=== PATIENT | female | born 1995 | race Caucasian/White ===

== ENCOUNTER 2024-06-01 08:25 | Emergency (ER) | payer SELFPAY ==
[2024-06-01 08:33] VITALS: BP 140/56; PULSE 60; RESP 16; TEMP 36.5; O2SAT 100
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
--- NOTE | 2024-06-01 08:48 | XR_ITS ---
WS: [email or web address] Cervical spine, 3 views, 06/01/2024 Clinical Data: trauma Comparison: None. Findings: No compression fractures are seen. The disc heights are normal. There is no prevertebral so ft tissue swelling. The odontoid is unremarkable. The soft tissues of the neck and the lung apices ar e normal. XR/XR cervical spine 3V* [id number] Impression: Negative cervical spine.
--- NOTE | 2024-06-01 08:48 | XR_ITS ---
WS: [email or web address] Right shoulder, 3 views, 06/01/2024 Clinical Data: trauma Comparison: None. Findings: No fractures or dislocations are seen. The AC joint is normal. The adjacent right clavicle, right sca pula and ribs are normal. The soft tissues are unremarkable. XR/XR shoulder RT min 2V* [id number] Impression: Negative right shoulder.
[2024-06-01 08:51] LABS: Basophils % 0.7 %; Eosinophils % 0.5 %; Lymphocytes # 1.9 10^3/uL (0.8-4.8); Lymphocytes % 32.8 %; Mean Corpuscular HGB Conc 32.6 g/dL (30-55); Mean Corpuscular Hemoglobin 31.5 pg (27-33); Mean Corpuscular Volume 96.6 fl (85-98); Mean Platelet Volume 10.7 fL (7.4-10.4); Monocytes # 0.3 10^3/uL (0.2-0.9); Monocytes % 5.3 %; Neutrophils # 3.41 10^3/uL (1.8-7.7); Neutrophils % 60.5 %; Nucleated Red Blood Cells % 0 %; Platelet Count 262 10^3/cmm (157-399); Red Blood Count 4.35 10^6/uL (3.85-5.65); Red Cell Distribution Width 11.9 % (12.1-15.1); White Blood Count 5.64 10^3/uL (3.29-11.43)
[2024-06-01 09:04] LABS: Alanine Aminotransferase 12 U/L (0-33); Albumin Level 4.4 g/dL (3.5-5.2); Alkaline Phosphatase 60 U/L (35-105); Anion Gap 13.6 (5-19); Aspartate Amino Transferase 16 U/L (0-32); Blood Urea Nitrogen 11 mg/dL (6-20); Carbon Dioxide 24 mmol/L (22-29); Chloride 105 mmol/L (98-107); Globulin 2.9 g/dL (1.3-4.6); Glomerular Filtration Rate 100.4 mL/min (90-130); Glucose 128 mg/dL (65-115); Osmolality Calculated 289 mOsm/kg (285-295); Potassium 3.6 mmol/L (3.5-5.1); Sodium 139 mmol/L (136-145); Total Bilirubin 0.7 mg/dL (0.15-1.2); Total Protein 7.3 g/dL (6.6-8.7)
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
[2024-06-01 09:30] VITALS: BP 102/67; PULSE 54; O2SAT 100
[2024-06-01 09:53] LABS: HCG, Serum Qual Negative (Negative)
[2024-06-01 10:15] LABS: Bilirubin Urine Negative (Negative); Blood Urine Negative (Negative); Glucose Urine UA Negative (Normal); Ketones Urine Trace (Negative); Leukocyte Esterase Urine Trace (Negative); Nitrate Urine Negative (Negative); Protein Urine 2+ (Negative); Specific Gravity, Urine 1.025 (1.005-1.030); Urine Appearance Cloudy (CLEAR); Urine Color Yellow (Yellow); pH Urine 5.5 (5-7)
[2024-06-01 10:19] LABS: Add Urine Microscopic? YES; Bacteria Urine None Seen /hpf; Hyaline Casts Urine 2.87 /lpf; WBC Urine 0-5 /hpf (0-5)
[2024-06-01 10:21] LABS: Add Urine Culture? No
[2024-06-01 10:33] VITALS: BP 110/71; PULSE 53; O2SAT 100
== END 2024-06-01 10:51 | disposition home or self-care (01) ==
PROVIDERS: Emergency Provider Family Medicine
DX: M25.511 Pain in right shoulder (principal); V89.2XXA Person injured in unspecified motor-vehicle accident, traffic, initial encounter
CPT/HCPCS: 36415; 71045; 72040; 73030; 80053; 81001; 84703; 85025; 99284

== ENCOUNTER 2025-01-11 15:38 | Emergency (ER) | payer OTHER, SELFPAY ==
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
--- NOTE | 2025-01-11 15:40 | XRR_ITS ---
PROCEDURE INFORMATION: Exam: XR Chest Exam date and time: 01/11/2025 3:49 PM Age: 29 years old Clinical indication: Pain; Angina pectoris; Additional info: Cp TECHNIQUE: Imaging protocol: Radiologic exam of the chest. Views: 1 view. COMPARISON: CR XR chest 1V portable [id number] 06/01/2024 8:56 AM FINDINGS: Lungs: Small cluster of nodular opacities overlying the lateral aspect of the right mid to upper lung at about the level of the right posterior 5th rib. No consolidation. Pleural spaces: Unremarkable. No pleural effusion. No pneumothorax. Heart/Mediastinum: Unremarkable. No cardiomegaly. Bones/joints: Unremarkable. XR/XR chest 1V portable [id number] IMPRESSION: 1. No acute findings. 2. Small nodular opacities along the periphery of the right lung are nonspecific. Consider follow-up imaging within 4-6 weeks to evaluate for resolution.
[2025-01-11 15:44] VITALS: BP 121/79; PULSE 70; RESP 14; TEMP 36.7; O2SAT 99; BMI 23.0
--- NOTE | 2025-01-11 15:50 | ECG_ITS ---
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 Measurements Intervals [place] Rate: 64 P: 53 [place]: 113 QRS: 20 QRSD: 98 T: 45 QT: 402 QTc: 415 Interpretive Statements SINUS RHYTHM WITH SINUS ARRHYTHMIA WITH SHORT [place] INTERVAL LOW QRS VOLTAGE IN PRECORDIAL LEADS [QRS DEFLECTION < 1.0 mV IN CHEST LEADS] INCOMPLETE RIGHT BUNDLE BRANCH BLOCK [90+ ms QRS DURATION, TERMINAL R IN V1/V2, 40+ ms S IN I/aVL/V4/V5/V6] POSSIBLE ANTERIOR MYOCARDIAL INFARCTION , PROBABLY OLD [30 ms Q WAVE IN V3/V4, OR R < 0.2 mV IN V4] No previous ECG available for comparison Electronically Signed On 01-12-2025 21:29:50 CDT by Erik Beckwith M.D. [id number]
--- NOTE | 2025-01-11 15:54 | ED_ITS ---
HPI - Dizziness 2 General: Chief Complaint: Dizziness Stated Complaint: chest pain Time Seen by Provider: 01/11/25 15:49 Source: patient Mode of arrival: ambulatory Limitations: no limitations History of Present Illness: HPI Narrative: 29-year-old female who states that she h ad a heat exhaustion little over a week ago she states that she had felt improvement was outside working day and started to feel the same symptoms states she felt nauseous and had some dry heaving states she had a headache along with bodyaches. She denies any fevers she has had some slight chest pains as well Associated symptoms: Reports chest pain, headache(s) and nausea; Denies chills or vomiting Related Data Home Medications ?Medication ?Instructions ?Recorded ?Confirmed acetaminophen 325 mg tablet 325 mg PO QID PRN Pain 06/01/24 (Tylenol) ibuprofen 200 mg tablet (Advil) 200 mg PO Q6H PRN Pain 06/01/24 06/01/24 Previous Rx's ?Medication ?Instructions ?Recorded diclofenac sodium 75 mg 75 mg PO Q12H PRN pain #20 t abs 06/01/24 tablet,delayed release ondansetron 4 mg disintegrating 4 mg PO Q6H PRN nausea and 01/11/25 tablet vomiting #14 tabs Allergies Allergy/AdvReac Type Severity Reaction Status Date / Time No Known Allergies Allergy Verified 01/11/25 15:47 Review of Systems 2 Const: Denies: fever(s), chills, body aches or change in appetite Eyes: Denies: blurry vision or eye discomfort ENMT: Denies: throat pain or dental pain Card: Reports: chest pain Resp: Denies: dyspnea GI: Reports: nausea; Denies: abdominal pain, vomiting or diarrhea Musc: Denies: neck pain or back pain Skin/Breast: Denies: rash Neuro: Reports: headache(s) All/Imm: Denies: urticaria Physical Exam 2 Const: COMMON NORMALS: no acute distress, patient oriented x3 and healthy appearing HENMT: COMMON NORMALS: normocephalic and atraumatic HEAD & SCALP: n ormocephalic and atraumatic Eye: COMMON NORMALS: Equal, round and reactive pupils present and EOMs intact bilaterally PUPIL: Yes Equal, round and reactive pupils present Neck/C-Spine: COMMON NORMALS: full ROM and supple Chest: COMMONS NORMALS: normal inspection of the chest and normal palpation of entire chest wall Resp: COMMON NORMALS: normal respiratory effort, No retractions, No use of accessory muscles and clear to auscultation bilaterally AUSCULTATION: clear to auscultation bilaterally Cardio: COMMON NORMALS: regular rate, regular rhythm and No murmurs present (Cardio) RATE: regular rate RHYTHM: regular rhythm GI: COMMON NORMALS: Normal to inspection, nondistended, normoactive bowel sounds present, Soft to palpation, non-tender and no masses PALPATION: Yes Soft to palpation Extremity: COMMON NORMALS: normal to inspection and full ROM Neuro: COMMON NORMALS: patient oriented x3, moves all extremities and no focal motor deficits Psych: COMMON NORMALS: mental status grossly normal, Normal thought process present and cooperative THOUGHT PROCESS: Normal thought process present Skin: COMMON NORMALS: no rashes or lesions noted and no wounds GENERAL SKIN EXAM: no rashes or lesions noted Course 2 Vital Signs: Vital signs: Vital Signs Temperature 98.1 F 01/11/25 15:44 Pulse Rate 66 01/11/25 16:14 Respiratory Rate 14 01/11/25 15:44 Blood Pressure 104/73 01/11/25 16:14 Pulse Oximetry 100 01/11/25 16:14 Oxygen Delivery Me thod Room Air 01/11/25 16:14 MDM - Dizziness Medical Decision Making Patient presents here with likely some weakness from heat exposure she feels much improved here she stable for discharge blood works normal return if worsening. Medical Records I reviewed the patient's medical records. Lab Data I reviewed the patient's lab results. 01/11/25 16:00 01/11/25 16:00 Radiology Impressions Chest X-Ray 01/11/25 15:40 IMPRESSION: 1. No acute findings. 2. Small nodular opacities along the periphery of the right lung are nonspecific. Consider follow-up imaging within 4-6 weeks to evaluate for resolution. Laboratory Results WBC 8.86 10^3/uL (3.29-11.43) 01/11/25 16:00 RBC 3.92 10^6/uL (3.85-5.65) 01/11/25 16:00 Hgb 12.40 g/dL (11.27-16.99) 01/11/25 16:00 Hct 36.1 % (36-47) 01/11/25 16:00 MCV 92.1 fl (85-98) 01/11/25 16:00 MCH 31.6 pg (27-33) 01/11/25 16:00 MCHC 34.3 g/dL (30-55) 01/11/25 16:00 RDW 12.2 % (12.1-15.1) 01/11/25 16:00 Plt Count 293 10^3/cmm (157-399) 01/11/25 16:00 MPV 11.1 fL (7.4-10.4) H 01/11/25 16:00 Neut % (Auto) 58.3 % 01/11/25 16:00 Lymph % (Auto) 33.3 % 01/11/25 16:00 [place] % (Auto) 6.3 % 01/11/25 16:00 Eos % (Auto) 0.9 % 01/11/25 16:00 Baso % (Auto) 1.0 % 01/11/25 16:00 Neut # (Auto) 5.16 10^3/uL (1.8-7.7) 01/11/25 16:00 Lymph # (Auto) 3.0 10^3/uL (0.8-4.8) 01/11/25 16:00 [place] # (Auto) 0.6 10^3/uL (0.2-0.9) 01/11/25 16:00 Eos # (Auto) 0.1 10^3/uL (0.0-0.8) 01/11/25 16:00 Baso # (Auto) 0.1 10^3/uL (0.0-0.1) 01/11/25 16:00 Nucleated RBC % (auto) 0 % 01/11/25 16:00 Nucleated RBCs # 0.0 /100WBC 01/11/25 16:00 Sodium 142 mmol/L (136-145) 01/11/25 16:00 Potassium 3.5 mmol/L (3.5-5.1) 01/11/25 16:00 Chloride 108 mmol/L (98-107) H 01/11/25 16:00 Carbon Dioxide 24 mmol/L (22-29) 01/11/25 16:00 Anion Gap 13.5 (5-19) 01/11/25 16:00 BUN 8 mg/dL (6-20) 01/11/25 16:00 Creatinine 0.8 mg/dL (0.5-0.9) 01/11/25 16:00 GFR Calculation 86.0 mL/min (90-130) L 01/11/25 16:00 Glucose 90 mg/dL (65-115) 01/11/25 16:00 Calculated Osmolality 292 mOsm/kg (285-295) 01/11/25 16:00 Calcium 9.0 mg/dL (8.5-10.5) 01/11/25 16:00 Total Bilirubin 0.9 mg/dL (0.15-1.2) 01/11/25 16:00 AST 15 U/L (0-32) 01/11/25 16:00 ALT 13 U/L (0-33) 01/11/25 16:00 Alkaline Phosphatase 50 U/L (35-105) 01/11/25 16:00 Creatine Kinase 105 U/L (26-192) 01/11/25 16:00 Total Protein 6.8 g/dL (6.6-8.7) 01/11/25 16:00 Albumin 4.3 g/dL (3.5-5.2) 01/11/25 16:00 Globulin 2.5 g/dL (1.3-4.6) 01/11/25 16:00 Lipase 40 U/L (13-60) 01/11/25 16:00 HCG, Qual Negative (Negative) 01/11/25 16:00 All radiology interpretation(s) finalized by discharge EKG Data EKG 1: I personally reviewed and interpreted this EKG as follows: EKG interpretation date: 01/11/25 EKG interpretation time: 15:42 Interpretation: nsr hr [address] elevation qrs 98 qtc 411 Discharge Plan Discharge Patient Disposition: Home Clinical Impression: Heat exposure, Weakness Condition: Stable Prescriptions: New ondansetron 4 mg tablet,disintegrating 4 mg PO Q6H PRN (Reason: nausea and vomiting) Qty: 14 0RF No Action acetaminophen [Tylenol] 325 mg Tablet 325 mg PO QID PRN (Reason: Pain) ibuprofen [Advil] 200 mg Tablet 200 mg PO Q6H PRN (Reason: Pain) diclofenac sodium 75 mg tablet,delayed release (DR/EC) 75 mg PO Q12H PRN (Reason: pain) Qty: 20 0RF Discharge Orders: Discharge ED (Routine); Ordered 01/11/25 Ordered By: Sylvain Guillen Discharge Diet: Advance as tolerated Discharge Activity: Resume usual activity Patient Instructions: Heat Exhaustion (ED) Print Language: Serbian Coding Level of Care Code ED Gun Synchronizer for Emani Montez
[2025-01-11] MEDS: ondansetron 2 mg/ML SDV 2 mL 4 MG IVP (16:08)
[2025-01-11 16:14] VITALS: BP 104/73; PULSE 66; O2SAT 100
[2025-01-11 16:15] LABS: Hematocrit 36.1 % (36-47); Hemoglobin 12.40 g/dL (11.27-16.99); Mean Corpuscular HGB Conc 34.3 g/dL (30-55); Mean Corpuscular Hemoglobin 31.6 pg (27-33); Mean Corpuscular Volume 92.1 fl (85-98); Nucleated Red Blood Cells % 0 %; Platelet Count 293 10^3/cmm (157-399); Red Blood Count 3.92 10^6/uL (3.85-5.65); White Blood Count 8.86 10^3/uL (3.29-11.43)
[2025-01-11 16:40] LABS: HCG, Serum Qual Negative (Negative)
[2025-01-11 16:47] LABS: Alanine Aminotransferase 13 U/L (0-33); Albumin Level 4.3 g/dL (3.5-5.2); Alkaline Phosphatase 50 U/L (35-105); Anion Gap 13.5 (5-19); Aspartate Amino Transferase 15 U/L (0-32); Blood Urea Nitrogen 8 mg/dL (6-20); Calcium 9.0 mg/dL (8.5-10.5); Carbon Dioxide 24 mmol/L (22-29); Chloride 108 mmol/L (98-107); Creatinine Clr Calc Pharmacy 91.7591; Globulin 2.5 g/dL (1.3-4.6); Glucose 90 mg/dL (65-115); Lipase 40 U/L (13-60); Osmolality Calculated 292 mOsm/kg (285-295); Potassium 3.5 mmol/L (3.5-5.1); Sodium 142 mmol/L (136-145); Total Protein 6.8 g/dL (6.6-8.7)
--- OUTSIDE RECORDS SUMMARY | 2025-01-12 17:55 | XMS_ITS | Clinical Summary ---
Author Organization [facility] [address] Address [address] [place] [address] CARLA Mehta [phone] Care Team Providers Care Regional Engagement Consultant Name Role Phone Unavailable Primary Care Provider Unavailabl e Allergies No known active allergies Medications albuterol sulfate 90 mcg/Actuation inhalerIndicati ons:Cough,Wheez ing Take 2 Puffs by inhalation every 4 hours as needed for Wheezing. 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 Major depressive disorder, recurrent episode Resolved Problems Problem Noted Date Diagnosed Date Resolved Date Suicide attempt 08/27/2015 06/20/2017 Intentional drug overdose 08/27/2015 Post-concussion headache 08/24/2014 Streptococcal pharyngitis 04/29/2014 Other specified diseases due to viruses 04/16/2007 10/21/2007 Volume depletion 04/16/2007 10/21/2007 Overview (09/27/2020): Updating IMO/ICD9 Code and Description Simple chronic serous otitis media 04/16/2007 05/16/2015 Unspecified otitis media 04/16/2007 Unspecified sinusitis (chronic) 04/16/2007 08/26/2009 Diaper or napkin rash 04/16/20072007 Unspecified viral meningitis 04/16/2007 10/21/2007 Visual discomfort 04/16/2007 10/21/2007 Acute suppurative otitis med ia with spontaneous rupture of eardrum 04/16/2007 0 Otalgia, unspecified 04/16/2007 008 Bronchitis, not specified as acute or chronic 04/16/20 07 08/26/2009 Streptococcal sore throat 04/16/2007 Candidiasis of skin and nails 04/16/2007 10/21/2007 Other specified disease of white blood cells 7 10/21/2007 Nonsuppurative otitis media, not specified as acute or chronic 04/16/2007 10/21/2007 Otorrhea, unspecified 04/16/20072007 Hypertrophy of tonsil with adenoids 04/16/2007 08/26/2009 Headache(784.0) 04/16/2007 10/21/2007 Immunizations Immunization Administration Dates Next Due (INFANRIX)(6 WKS-6 YRS) DIPT HERIA, TETANUS TOXOIDS, AND ACCELLULAR PERTUSSIS VACCINE (DTAP), 0.5 ML IM 09/28/2001,03/02/1998,1997,06/06,1997 (IPOL)(6 WKS AND UP) POLIOVI SONALI VACCINE, INACTIVATED (IPV), 3 DOSE, SUBCUT OR IM 09/28/2001,03/02/1998,1997,04/05 (M-M-R II/PRIORIX)(12 MO UP) MEASLES, MUMPS AND RUBELLA VIRUS VACCINE, 0.5 ML IM/SUBCUT 09/28/2001 (VARIVAX)(12 MOS UP)VARICELL A VIRUS VACCINE (PF) 0.5 ML, SUB CUT 03/02/1998 HIB, Unspecified Formulation 03/02/1998, 1997,1997,04/05 Hepatitis A Vaccine Ped Adol IM 2 Dose VFC 08/10/2009 Hepatitis B Vaccine 1997,1997,1996 INFLUENZA VACCINE QUADRIVALE NT 3 YR UP PF IM 05/16/2015 Meningococcal A Conjugate Va ccine IM [facility] 08/10/2009 Tdap Vaccine > 7 Yo IM [facility] 08/10/2009 Varicella Vaccine Live Sq [facility] 08/10/2009 Family History Medical History Relation Name Comments Breast Cancer Maternal Grandmother Relation Name Status Comments Brother Alive Father Alive Maternal Grandmother Mother Alive Sister Alive Social History Tobacco Use Types Packs/Day Years Used Date Smoking Tobacco: Every Day Cigarettes Smokeless Tobacco: Never Alcohol Use Standard Drinks/Week Comments No 0 (1 standard drink = 0.6 oz pur e alcohol) Comments Unknown Sex and Gender Information Value Date Recorded Sex Assigned at Not on file 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 Gender Identity Not on file Sexual Orientation Not on file Last Filed Vital Signs Vital Sign Reading Time Taken Comments Blood Pressure 92/61 03/28/2022 2:14 PM CDT Pulse 74 03/28/2022 2:14 PM CDT Temperature 36.8 C (98.3 F) 03/28/2022 2:14 PM CDT Respiratory Rate 16 03/28/2022 2:14 PM CDT Oxygen Saturation 98% 03/28/2022 2:14 PM CDT Inhaled Oxygen Concentration - - Weight 53.8 kg (118 lb 8 oz) 03/28/2022 2:14 PM CDT Height 160 cm (5' 3 ) 03/28/2022 2:14 PM CDT Body Mass Index 20.99 03/28/2022 2:14 PM CDT Plan of Treatment Health Maintenance Due Date Last Done Comments HPV VACCINES (1 - 3-dose series) 01/30/2012 CERVICAL CANCER SCREENING 2018 HPV/Cotest (21-29) 2018 PAP SMEAR 2018 DTAP/TDAP/TD VACCINES (7 - T d or Tdap) 08/11/2019 08/10/2009, 09/28/2001, 03/02/1998, Additional history exists INFLUENZA VACCINE (#1) 2024 09/16/2018, 2014 HEPATITIS B VACCINES Completed 1997, 1997, 1997 Insurance [facility]
--- OUTSIDE RECORDS SUMMARY | 2025-01-12 17:55 | XMS_ITS | Patient Health Record ---
Author Organization [facility] Address [address] [address] Care Team Providers Care Crate Tier Name Role Phone Yolis Mathews [phone] Allergies No Known Allergies Reason For Referral No Information Social History Sex Assigned At : Social History Observation Description Sex Assigned At Female Vital Signs Heart Rate 66 /min 12/08/2024 Temperature 97.1 degrees Fahrenheit 12/08/2024 Oximetry 99 % 12/08/2024 Blood pressure diastolic 70 mm Hg 12/08/2024 Weight-kg 64.5 kg 12/08/2024 Blood pressure systolic 116 mm Hg 12/08/2024 Weight 142.2 lbs 12/08/2024 Encounters Encounter Location Date Provider [email or web address] [address] [place] [id number] 12/08/2024 Yolis Mathews Plan Of Treatment No Information Insurance Providers Payer Name Payer Address Payer Phone Subscriber Number Group Number Insured Name Patient Relationship to Insured Coverage Start Date Coverage End Date [employer] [address] [place] [address] [id number] MICK CHURCH Self - patient is the insured Medical (General) History Medical History History ICD Code gahlbladder removal in 2020
--- OUTSIDE RECORDS SUMMARY | 2025-01-12 17:56 | XMS_ITS | Patient Health Record ---
Author Organization [facility] Address [address] [place] [address] [address] CARLA Merlos [id number] Care Team Providers Care Appliance Repairer Name Role Phone Jennifer Penn Unavailable [phone] Reason For Referral No Information Medications Medication SIG (Take, Route, Frequency, Duration) Notes Start Date End Date Status Promethazine-DM 6.25-15 MG/5ML 5 ml as needed Orally every 6 hrs for 7 days 09/28/2020 Active predniSONE 20 MG 2 tablets Orally Onc e a day for 5 days 09/22/2020 Active Albuterol Sulfate HFA 108 (90 Base) MCG/ACT 1-2 puffs as needed Inhalation every 4 hrs for 30 days 09/22/2020 Active Azithromycin 250 MG 2 Tablets on Day 1 a nd then 1 tablet on Days 2-5 Orally as directed for 5 days 09/22/2020 Active Social History Tobacco Use: Social History Observation Description Date Details (start date - stop date) Current Smoker NA - NA Tobacco Use (OLD): Question Answer Notes Are you a: current smoker Sexual Hx: Question Answer Notes Had sex in the last 12 months (vaginal, oral, or anal)? Yes with Women only Use protection? No Alcohol Screening (OLD): Question Answer Notes Did you have a drink containing alcohol in the p ast year? No Points 0 Interpretation Negative Problems Problem Type SNOMED Code ICD Code Onset Dates Problem Status W/U Status Risk Notes Problem [id number] Smoker (F17.200) Active confirmed Plan Of Treatment No Information Medical (General) History Medical History History ICD Code Anxiety Depression Surgical History Surgery Date(Month/Year) Gallbladder Removal 2018 Tonsilectomy 2002
== END 2025-01-11 17:05 | disposition home or self-care (01) ==
PROVIDERS: Emergency Provider Emergency Medicine
DX: T67.8XXA Other effects of heat and light, initial encounter (principal); R07.9 Chest pain, unspecified; R42 Dizziness and giddiness; X30.XXXA Exposure to excessive natural heat, initial encounter; R53.1 Weakness
CPT/HCPCS: 36415; 71045; 80053; 82550; 83690; 84703; 85025; 93005; 96361; 96374; 96375; 99285; J1885; J2405; J7030